=== PATIENT | female | born 1950 | race Caucasian/White ===

== ENCOUNTER → 2017-01-02 | Outpatient (CLI) | payer OTHER | LOC: FIMAGING 14:21 | DX: Z12.31 Encounter for screening mammogram for malignant neoplasm of breast (principal) | CPT/HCPCS: G0202 ==

== ENCOUNTER 2017-03-24 05:54 | Day surgery (SDC) | payer OTHER ==
--- NOTE | 2017-03-03 14:08 | GHP ---
[f rep st] PREOP HISTORY AND PHYSICAL DATE OF ADMISSION: 03/24/2017 ADMITTING DIAGNOSES: 1. Postmenopausal bleeding. 2. Thickened endometrium. HISTORY OF PRESENT ILLNESS: Patient is a 67-year-old, 1, para 1-0-0-2 with last menstrual period in 2002 who presents with a history of postmenopausal bleeding since September 2016. The patient did have a workup with a nurse practitioner in my office. She had an ultrasound that showed endometrium thickened at 1.6 cm, but endometrial biopsy was negative for hyperplasia or malignancy. The patient states her bleeding is like a period. She bleeds for few days, needs to wear a pad and then will stop. The patient has been on hormone replacement therapy for several years now. She is currently on the estradiol patch 0.0375 twice weekly, as well as Prometrium 100 mg orally at night. Patient was treated with cyclical Progesterone x 1 month. She had a followup ultrasound showing that the endometrium remains thickened at 0.9 cm. She did have bleeding up to about a week ago. Discussed with the patient proceeding to the OR for D and C not only for curative treatment but for a diagnosis to rule out hyperplasia or any uterine malignancy. Patient agrees with the plan and wants to have the surgery. Patient does present today for a preop visit. No questions or concerns. PAST OB HISTORY: She had an uncomplicated , twins. TRAFFIC REPRESENTATIVE HISTORY: Menopausal now. Last LMP 2002. The patient denies a history of abnormal Pap smears or any exposure to sexually transmitted diseases. PAST MEDICAL HISTORY: Arthritis, hyperlipidemia, hypertension, osteopenia. PAST SURGICAL HISTORY: Abdominoplasty, left breast biopsy, , colonoscopy, left foot surgery. CURRENT MEDICATIONS: Include atorvastatin, calcium magnesium supplement, estradiol patch, losartan, Prometrium, vitamin D3. ALLERGIES: Lisinopril. FAMILY HISTORY: Mother has hypertension, hyperlipidemia and osteoporosis. Father with liposarcoma. SOCIAL HISTORY: The patient lives with her who currently has dementia. She has 2 children, twin girls. She is active, she walks 2 to 3 times a week. She drinks alcohol socially 3-4 times weekly and denies any illicit drug use or tobacco use. REVIEW OF SYSTEMS: A 10-point review of systems is negative. Pertinent positives noted in the HPI. LABS: None. STUDIES: Recent ultrasound: Anterior uterus measuring 7 x 3 x 5 cm. Endometrium remains thick measuring 0.9 cm. Left ovary is normal. Right ovary is normal. The right ovarian cyst remains unchanged at 11 x 10 x 12 mm. There is no free fluid noted. PHYSICAL EXAMINATION: VITAL SIGNS: On admission vital signs are stable. The patient is afebrile. GENERAL: Well-nourished, well-developed female. Alert and oriented times x3. CARDIOVASCULAR: Regular rate and rhythm. PULM: Lungs clear to auscultation bilaterally. ABDOMEN: Soft, nontender, nondistended. PELVIC: On bimanual exam, the uterus is normal size, nontender, and mobile. No adnexal masses noted. ASSESSMENT AND PLAN: Patient is a 67-year-old, 1, para 1-0-0-2 with last menstrual period in 2002 with postmenopausal bleeding and a thickened endometrium. 1. We discussed surgery, D and C, its limitations, n.p.o. status, and postop recovery. 2. Surgical consents were obtained. We discussed risks, benefits and alternatives including but not limited to, bleeding, infection, and risk of uterine perforation. 3. The patient understands all risks and wants to proceed with surgery. 4. Antibiotics taxonomy teacher to OR. 5. SCDs for DVT prophylaxis. /[id number]/MODL MTDD
[2017-03-09 13:12] LABS: ANION GAP 9 mEq/L (8-16); CALCIUM 10.5 mg/dL (8.5-10.4); CARBON DIOXIDE 26 mEq/l (22-31); CHLORIDE 103 mEq/L (97-110); CREATININE 0.9 mg/dL (0.6-1.0); GLOMERULAR FILTRATION RATE > 60; GLUCOSE 95 mg/dL (70-100); POTASSIUM 3.9 mEq/L (3.5-5.2); SODIUM 138 mEq/L (134-144)
[2017-03-24] MEDS ORDERED: LR 1,000 ML IV SCH (06:22)
[2017-03-24] MEDS ORDERED: ceFAZolin 2 GM/DEXTROSE 100 ML IV ONE (06:22)
[2017-03-24] MEDS ORDERED: LR 1,000 ML IV ONE (06:23)
[2017-03-24 06:28] VITALS: PULSE 83
--- NOTE | 2017-03-24 07:11 | PDHPUP ---
History & Physical Update H&P update statement: This history and physical update is based on an assessment of the patient which was completed after admission or registration (within 24 hours), but prior to the surgery/procedure. H&P update: H&P reviewed & patient examined, no change in patient's condition since H&P completed
[2017-03-24] MEDS ORDERED: MIDAZOLAM 2 MG/2 ML VIAL ONE (07:23)
[2017-03-24] MEDS ORDERED: PROPOFOL 200 MG/20 ML VIAL ONE (07:29)
[2017-03-24] MEDS ORDERED: fentaNYL 100 MCG/2 ML INJ ONE (07:29)
[2017-03-24] MEDS ORDERED: SILVER NITRATE APPLICATOR 1 APPL TP ONE (07:38)
[2017-03-24] MEDS ORDERED: LIDOCAINE 2% 5 ML SDV ONE (07:40)
[2017-03-24] MEDS ORDERED: MEPERIDINE 25 MG/ML SYR IVP PRN (07:46)
[2017-03-24] MEDS ORDERED: NALOXONE HCL 0.4 MG/ML INJ IVP PRN (07:46)
[2017-03-24] MEDS ORDERED: ACETAMINOPHEN 500 MG TAB PO PRN (07:46)
[2017-03-24] MEDS ORDERED: DEXAMETHASONE 4 MG/ML VIAL IVP PRN (07:46)
[2017-03-24] MEDS ORDERED: METOCLOPRAMIDE 10 MG/2 ML VIAL IVP PRN (07:46)
[2017-03-24] MEDS ORDERED: LR 500 ML IV PRN (07:46)
[2017-03-24] MEDS ORDERED: ONDANSETRON 4 MG/2 ML VIAL IVP PRN (07:46)
[2017-03-24] MEDS ORDERED: HYDROCODONE/APAP 5/325 TAB PO PRN (07:46)
[2017-03-24] MEDS ORDERED: OXYCODONE/APAP 5/325 TAB PO PRN (07:46)
[2017-03-24] MEDS ORDERED: PROMETHAZINE HCL 25 MG/ML INJ IVP PRN (07:46)
[2017-03-24] MEDS ORDERED: ALBUTEROL 3 ML DEYVIAL IH PRN (07:46)
[2017-03-24] MEDS ORDERED: fentaNYL 100 MCG/2 ML INJ IVP PRN (07:46)
--- NOTE | 2017-03-24 07:48 | PDANEPAE ---
ANE Past Medical History - Cardiovascular History Hx Hypertension: Yes Hx Arrhythmias: No Hx Chest Pain: No Hx Coronary Artery / Peripheral Vascular Disease: No Hx CHF / Valvular Disease: No Hx Palpitations: No Cardiovascular History Comment: pcp monitors bp medications - Pulmonary History Hx COPD: No Hx Asthma/Reactive Airway Disease: No Hx Recent Upper Respiratory Infection: No Hx Oxygen in Use at Home: No Hx Sleep Apnea: No Sleep Apnea Screening Result - Last Documented: Negative - Neurologic History Hx Cerebrovascular Accident: No Hx Seizures: No Hx Dementia: No - Endocrine History Hx Diabetes: No - Renal History Hx Renal Disorders: No - Liver History Hx Hepatic Disorders: No - Neurological & Psychiatric Hx Hx Neurological and Psychiatric Disorders: No - Cancer History Hx Cancer: No - Congenital Disorder History Hx Congenital Disorders: No - GI History Hx Gastrointestinal Disorders: No - Other Health History Other Health History: wears glasses - Chronic Pain History Chronic Pain: No - Surgical History Prior Surgeries: right knee surgery x2. right total knee replacement. left foot surgery. for twins. abdominoplasty. left breast biopsy ANE Review of Systems Review of Systems: - Exercise capacity METS (RN): 4 METS ANE Patient History - Allergies Allergies/Adverse Reactions: lisinopril Allergy (Verified 03/07/17 11:38) Other-Enter Comments - Home Medications Home Medications: Atorvastatin Calcium 03/07/17 [Last Taken Unknown] Estradiol Transdermal Patch 03/07/17 [Last Taken Unknown] Herbals/Supplements -Info Only 03/07/17 [Last Taken Unknown] Losartan-Hctz 50-12.5 mg Tab 03/07/17 [Last Taken Unknown] Progesterone 03/07/17 [Last Taken Unknown] - NPO status NPO Since - Liquids (Date): 03/23/17 NPO Since - Liquids (Time): 19:00 NPO Since - Solids (Date): 03/23/17 NPO Since - Solids (Time): 19:00 - Smoking Hx Smoking Status: Never smoked - Family Anes Hx Family Hx Anesthesia Complications: none ANE Labs/Vital Signs - Labs Result Diagrams: 03/09/17 12:30 - Vital Signs Blood Pressure: 159/87 Heart Rate: 83 Respiratory Rate: 14 O2 Sat (%): 96 Height: 167.64 cm Weight: 71.668 kg ANE Physical Exam - Airway Mallampati Score: Class 2 Mouth exam: normal dental/mouth exam - Pulmonary Pulmonary: no respiratory distress, no rales or rhonchi, clear to auscultation - Cardiovascular Cardiovascular: regular rate and rhythym, no murmur, rub, or gallop - ASA Status ASA Status: II ANE Anesthesia Plan Anesthesia Plan: GA with mask
[2017-03-24] MEDS ORDERED: KETOROLAC 30 MG/1 ML SDV ONE (07:49)
[2017-03-24] MEDS ORDERED: ONDANSETRON 4 MG/2 ML VIAL ONE (07:49)
[2017-03-24] MEDS ORDERED: MIDAZOLAM 2 MG/2 ML VIAL IVP ONE (08:00)
--- NOTE | 2017-03-24 08:00 | POSTOPPROG ---
Post Op Note Date of Operation: 03/24/17 Surgeon: Jenn Ward Lumber Scaler: None Anesthesiologist: Ele Bar Anesthesia: IV Sedation, LMA Pre-op Diagnosis: PMB Post-op Diagnosis: PMB Indication: 67 y/o with several months of PMB, thickened endo on u/s at 9mm Procedure: D&C Findings: Atrophic vagina; no lesions on cervix; minimal endometrial tissue noted Inf/Abcess present in the surg proc area at time of surgery?: No Depth: Superfical (Skin SQ) EBL: Minimal (5cc) Total fluids administered: 200 cc LR Complications: None Specimen(s): Endometrial curettings
[2017-03-24 08:29] VITALS: RESP 14
--- NOTE | 2017-03-24 08:36 | POSTANESTH ---
Post Anesthetic Evaluation Cardiovascular Status: Normal, Stable Respiratory Status: Normal, Stable Level of Consciousness/Mental Status: Can Participate in Eval Pain Control: Adequate, Prn Tx Ordered Nausea/Vomiting Control: Adequate, Prn Tx Ordered Complications Possibly Related to Anesthesia: None Noted
--- NOTE | 2017-03-24 09:24 | GOP ---
[f rep st] OPERATIVE REPORT DATE OF OPERATION: 03/24/2017 SURGEON: Jenn Ward DO CONTROL CLERK HEAD: None. ANESTHESIA: LMA. ANESTHESIOLOGIST: Petra White MD PREOPERATIVE DIAGNOSIS: Postmenopausal bleeding. POSTOPERATIVE DIAGNOSIS: Postmenopausal bleeding. PROCEDURE PERFORMED: Dilation and curettage. FINDINGS: Atrophic vagina. Cervix without lesions. Minimal endometrial curettings obtained. SPECIMENS: Endometrial curettings. ESTIMATED BLOOD LOSS: Less than 5 cc. INDICATIONS: Patient is a 67-year-old postmenopausal 1, para 1-0-0-2, who presents with several months of postmenopausal bleeding. Patient did have a workup in my office by my nurse practitioner and had a negative endometrial biopsy. Was started on cyclic progesterone but continued to have postmenopausal bleeding, and followup ultrasound still showed a thickened lining at 9 mm. Patient has been stable on hormone replacement therapy for years. We discussed proceeding to the operating room for both therapeutic and diagnostic treatment for postmenopausal bleeding. We discussed risks including bleeding and infection, and risk of uterine perforation. Patient understands all risks of the surgery and wants to proceed with the surgery at this time. DESCRIPTION OF PROCEDURE: Patient was taken to the operating room where anesthesia was obtained without difficulty. The patient was placed in dorsal lithotomy position and prepped and draped in sterile manner. A speculum was placed in the patient's vagina. Findings as noted above. The anterior lip of the cervix was grasped with a single-tooth tenaculum. The uterus was then sounded to 7-8 cm and was dilated up to a #8 Hegar to allow a large sharp curette to be advanced into the uterus. A large sharp curette was then used to obtain a minimal amount of tissue. This was done in all 4 quadrants of the uterus. The specimen was sent to pathologist for analysis. All instruments were removed from the vagina. There was noted to be some bleeding from the tenaculum site on the cervix. Silver nitrate x1 was used, and hemostasis was noted. There were no complications. Patient tolerated the procedure well. The patient was taken out of dorsal lithotomy position, awakened, and sent to recovery area in satisfactory condition. IV FLUIDS: 200 cc LR. URINE OUTPUT: Patient emptied her bladder prior to the procedure. /[id number]/MODL MTDD
[2017-03-24 09:57] VITALS: BP 134/67; O2SAT 97
[2017-03-24 09:58] VITALS: TEMP 97.7
== END 2017-03-24 09:20 | disposition home or self-care (01) ==
LOC: FOBOP 05:54
PROVIDERS: ATTEND Obstetrics & Gynecology
PROC: 0UDB7ZX Extraction of Endometrium, Via Natural or Artificial Opening, Diagnostic (ICD-10-PCS; principal; 2017-03-24 07:30)
DX: N95.0 Postmenopausal bleeding (principal); R93.8 Abnormal findings on diagnostic imaging of other specified body structures; E78.5 Hyperlipidemia, unspecified; I10 Essential (primary) hypertension; N84.1 Polyp of cervix uteri; N72 Inflammatory disease of cervix uteri
CPT/HCPCS: J0690; J1885; J2250; J2405; J2704; J3010

== ENCOUNTER → 2018-01-03 | Outpatient (CLI) | payer OTHER | LOC: FIMAGING 15:52 | PROVIDERS: ATTEND Nurse Practitioner Women's Health | DX: Z12.31 Encounter for screening mammogram for malignant neoplasm of breast (principal) ==

== ENCOUNTER → 2018-09-10 | Outpatient (CLI) | payer OTHER | LOC: FIMAGING 13:31 | PROVIDERS: ATTEND Orthopaedic Surgery | DX: M17.12 Unilateral primary osteoarthritis, left knee (principal) ==

== ENCOUNTER 2018-11-12 09:33 | Observation (INO) | payer OTHER ==
--- NOTE | 2018-11-12 06:15 | PDHPUP ---
History & Physical Update H&P update statement: This history and physical update is based on an assessment of the patient which was completed after admission or registration (within 24 hours), but prior to the surgery/procedure. H&P update: no change in patient's condition since H&P completed
--- NOTE | 2018-11-12 06:16 | PDIAF ---
- Diagnosis Diagnosis: left knee djd Code Status: Full Code - Medication Management Discharge Medications: electronically signed and located in the Home Medication List. - Orders Services needed: Home Care, Physical Therapy Home Care Face to Face: I certify that this patient was under my care and that I had the required [id number] encounter meeting the encounter requirements on the discharge day. My findings support the fact that the patient is homebound as defined in Home Care Face to Face Continued: CMS Chapter 7 Medicare Benefits Manual 30.1.1 , The condition of the patient is such that there exists a normal inability to leave home and consequently, leaving home would require a considerable and taxing effort. Diet Recommendation: no restrictions on diet Diet Texture: Regular Texture Diet Additional Instructions: TOTAL JOINT ARTHROPLASTY DISCHARGE INSTRUCTIONS 1. Your surgeon follows the [facility] protocol for reducing your risk of DVT (blood clots) following surgery. Medication will be ordered to prevent blood clots. A sudden increase in calf pain and/or swelling could indicate a blood clot in your leg. If this occurs, please call your surgeon or his/her dental assistant instructor. An ultrasound of the leg may be necessary to diagnose a blood clot. If you have conditions that make you a higher risk for blood clots, your surgeon may use more aggressive ways to prevent them. Notify your surgeon if you think you are a high risk for blood clots. 2. Wear your white surgical stockings (GISSELL hose) for 2 weeks. This decreases your swelling and may help prevent blood clots. It is ok to remove GISSELL hose at night time to give your legs a break. 3. Swelling and bruising in the surgical leg is common. If you feel that it is excessive, please notify your surgeon. 4. Elevate your surgical leg with the ankle above the hip several times every day. Please keep the leg straight when you elevate by putting pillows under your foot. Do not put pillows under your knee. This will make being able to fully straighten more difficult. This is uncomfortable, but try to do it as much as possible. 5. For total knee replacements use compressive wrap on your knee for 3-5 days after surgery, then you can discontinue it. 6. Use a walker or crutches for 1-2 weeks. Progress your weight-bearing as tolerated. You may start to use a cane when you feel stable and safe. 7. You will receive physical therapy instructions in the hospital. Continue those exercises at home. There are additional exercises in the total joint booklet you were given before surgery. Outpatient physical therapy will begin 7- 10 days after surgery. Please schedule this in advance. 8. Use ice on your knee at least 3-5 times every day for 30 minutes. This helps reduce pain and swelling. Also use it at night before falling asleep. 9. Leave your surgical dressing in place for 2 weeks. Your dressing is water resistant, but not waterproof. Cover it with Saran Wrap or Ssuei-i-Bwnk before showering. You may shower as soon as you feel safe entering a shower. If you notice bleeding from your incision 2 or 3 days after surgery, please notify your surgeon. 10. Due to narcotics, decreased activity and altered diet, most patients experience constipation after surgery. Use [id number] stool softeners while you are on narcotics. 11. You may drive a car when you are comfortable bearing weight, have good muscular control of your leg and are off narcotics. This usually occurs 2-4 weeks after surgery, depending on which leg was operated on. 12. If there are questions not addressed here, please refer the [facility] book given for more information. If you still have questions, please contact your surgeon s office. 13. If you have a life-threatening emergency, please call 911 and go to the emergency room immediately. For non-life threatening emergencies, please call your physicians office for advice before going to the emergency room. - Follow Up Care Current Providers and Referrals: Maricruz Medel MD [Primary Care Provider] - Kunal Dior MD [Medical Doctor] -
[~2018-11-12 09:33] MED LIST: CALCIUM CHLORIDE 1 GM/10 ML INJ ONE; ROPIVACAINE 0.2% 80 MG, EPINEPHrine 0.2 MG, KETOROLAC TROMETHAMINE 30 MG, morphINE 10 M... IU ONE; THROMBIN (BOVINE) 5,000 UNIT VIAL TP ONE; TRANEXAMIC ACID 1,000 MG in NS 100 ML IV ONE; ceFAZolin 1 GM/5 ML SYR ONE
[2018-11-12] MEDS ORDERED: ACETAMINOPHEN 325 MG TAB PO ONE (10:05)
[2018-11-12] MEDS ORDERED: FAMOTIDINE 20 MG TAB PO ONE (10:05)
[2018-11-12] MEDS ORDERED: ceFAZolin 2 GM/DEXTROSE 100 ML IV ONE (10:05)
[2018-11-12] MEDS ORDERED: LIDOCAINE 1% 2 ML INJ ID PRN (10:05)
[2018-11-12] MEDS ORDERED: LR 1,000 ML IV ONE (10:05)
[2018-11-12] MEDS ORDERED: MIDAZOLAM 2 MG/2 ML VIAL IVP ONE (11:32)
--- NOTE | 2018-11-12 11:32 | PDANEPAE ---
ANE History of Present Illness Left knee OA ANE Past Medical History - Cardiovascular History Hx Hypertension: Yes Hx Arrhythmias: No Hx Chest Pain: No Hx Coronary Artery / Peripheral Vascular Disease: No Hx CHF / Valvular Disease: No Hx Palpitations: No Cardiovascular History Comment: pcp monitors bp medications - Pulmonary History Hx COPD: No Hx Asthma/Reactive Airway Disease: No Hx Recent Upper Respiratory Infection: No Hx Oxygen in Use at Home: No Hx Sleep Apnea: No Sleep Apnea Screening Result - Last Documented: Negative - Neurologic History Hx Cerebrovascular Accident: No Hx Seizures: No Hx Dementia: No - Endocrine History Hx Diabetes: No - Renal History Hx Renal Disorders: No - Liver History Hx Hepatic Disorders: No - Neurological & Psychiatric Hx Hx Neurological and Psychiatric Disorders: No - Cancer History Hx Cancer: No - Congenital Disorder History Hx Congenital Disorders: No - GI History Hx Gastrointestinal Disorders: Yes Gastrointestinal History Comment: diverticulosis - Other Health History Other Health History: wears glasses - Chronic Pain History Chronic Pain: Yes (hands) - Surgical History Prior Surgeries: right knee surgery x2. right total knee replacement. left foot surgery. for twins. abdominoplasty. left breast biopsy ANE Review of Systems Review of Systems: - Exercise capacity METS (RN): 4 METS ANE Patient History - Allergies Allergies/Adverse Reactions: lisinopril Allergy (Verified 11/12/18 10:41) Other-Enter Comments - Home Medications Home medications: home medication list seen and reviewed Home Medications: Atorvastatin Calcium 03/07/17 [Last Taken Unknown] Estradiol Transdermal Patch 03/07/17 [Last Taken 11/05/18] Herbals/Supplements -Info Only 03/07/17 [Last Taken 11/05/18] Losartan-Hctz 50-12.5 mg Tab 03/07/17 [Last Taken 11/11/18] Progesterone 03/07/17 [Last Taken 11/05/18] Celebrex 10/30/18 [Last Taken 11/05/18] Cholecalciferol (Vitamin D3) 10/30/18 [Last Taken 11/05/18] Folic Acid 10/30/18 [Last Taken 11/05/18] Methotrexate 10/30/18 [Last Taken Unknown] - NPO status NPO Since - Liquids (Date): 11/12/18 NPO Since - Liquids (Time): 05:00 NPO Since - Solids (Date): 05/19/19 NPO Since - Solids (Time): 19:00 - Anes Hx Anes Hx: no prior problems (Prior spinal without diff) - Smoking Hx Smoking Status: Never smoked - Family Anes Hx Family Hx Anesthesia Complications: none ANE Labs/Vital Signs - Vital Signs Blood Pressure: 171/91 Heart Rate: 95 Respiratory Rate: 20 O2 Sat (%): 98 Height: 167.64 cm Weight: 72.121 kg ANE Physical Exam - Airway Neck exam: FROM Mallampati Score: Class 2 Mouth exam: normal dental/mouth exam - Pulmonary Pulmonary: no respiratory distress - Cardiovascular Cardiovascular: regular rate and rhythym - ASA Status ASA Status: II ANE Anesthesia Plan Anesthesia Plan: MAC, spinal Regional Anesthesia: adductor canal FNB
[2018-11-12] MEDS ORDERED: ceFAZolin 1 GM/5 ML SYR ONE (11:49)
[2018-11-12] MEDS ORDERED: PROPOFOL/EMULSION 500 MG/50 ML BOTTLE IV ONE ×2 (11:58→13:12)
[2018-11-12] MEDS ORDERED: PROPOFOL 200 MG/20 ML VIAL ONE (11:58)
[2018-11-12] MEDS ORDERED: LIDOCAINE 2% 2 ML INJ ONE (12:02)
[2018-11-12] MEDS ORDERED: PROMETHAZINE HCL 25 MG/ML INJ IVP PRN ×2 (12:37→13:33)
[2018-11-12] MEDS ORDERED: NALOXONE HCL 0.4 MG/ML INJ IVP PRN (12:37)
[2018-11-12] MEDS ORDERED: HYDROmorphONE/DILAUDID 1 MG/ML INJ IVP PRN (12:37)
[2018-11-12] MEDS ORDERED: ONDANSETRON 4 MG/2 ML VIAL IVP PRN ×2 (12:37→13:33)
[2018-11-12] MEDS ORDERED: ROPIVACAINE HCL 150 MG/30 ML INJ ONE (13:31)
[2018-11-12] MEDS ORDERED: CYCLOBENZAPRINE 10 MG TAB PO PRN (13:33)
[2018-11-12] MEDS ORDERED: POLYETHYLENE GLYCOL 3350 17 GM PKT PO PRN (13:33)
[2018-11-12] MEDS ORDERED: PROMETHAZINE HCL 25 MG SUPPR PR PRN (13:33)
[2018-11-12] MEDS ORDERED: LACTULOSE 20 GM/30 ML UDCUP PO PRN (13:33)
[2018-11-12] MEDS ORDERED: DIPHENOXYLATE/ATROPINE LOMOTIL 1 TAB PO PRN (13:33)
[2018-11-12] MEDS ORDERED: diphenhydrAMINE 25 MG CAP PO PRN (13:33)
[2018-11-12] MEDS ORDERED: TEMAZEPAM 15 MG CAP PO PRN (13:33)
[2018-11-12] MEDS ORDERED: ONDANSETRON DISINTEGRATING 4 MG TAB PO PRN (13:33)
[2018-11-12] MEDS ORDERED: BISACODYL 10 MG SUPP PR PRN (13:33)
[2018-11-12] MEDS ORDERED: MAGNESIUM HYDROXIDE 30 ML UDCUP PO PRN (13:33)
[2018-11-12] MEDS ORDERED: METOCLOPRAMIDE 10 MG/2 ML VIAL IVP PRN (13:33)
--- NOTE | 2018-11-12 13:33 | POSTOPPROG ---
Post Op Note Date of Operation: 11/12/18 Surgeon: Kunal Dior Pipe Fitter Soft Copper: Sandra Anesthesiologist: Chucho Anesthesia: Spinal Pre-op Diagnosis: Left knee OA Post-op Diagnosis: Left knee OA Indication: Left knee OA Procedure: Left total knee arthroplasty, MAKOplasty robotic assist Findings: Left knee OA Inf/Abcess present in the surg proc area at time of surgery?: No Depth: Deep Incisional (Fascial) EBL: 100-500
[2018-11-12] MEDS ORDERED: LR 1,000 ML IV SCH (14:00)
[2018-11-12] MEDS ORDERED: fentaNYL 100 MCG/2 ML INJ ONE ×2 (14:01→14:18)
[2018-11-12] MEDS: fentaNYL 100 MCG/2 ML INJ IVP PRN ×4 (14:03→14:45)
--- NOTE | 2018-11-12 14:12 | POSTANESTH ---
Post Anesthetic Evaluation Cardiovascular Status: Similar to Pre-Op Cond Respiratory Status: Similar to Pre-op Cond. Level of Consciousness/Mental Status: Alert and Oriented Pain Control: Inadeq, Add Tx Required Nausea/Vomiting Control: Inadeq, Add Tx Reqired Complications Possibly Related to Anesthesia: None Noted (Adductor cannal block done in PACU. Well tolerated and no complications noted.)
[2018-11-12] MEDS ORDERED: HYDROmorphONE/DILAUDID 1 MG/ML INJ ONE (14:43)
[2018-11-12] MEDS: TRANEXAMIC ACID 650 MG TAB PO SCH ×2 (15:43→21:04)
--- NOTE | 2018-11-12 15:52 | SOAPPROG ---
SOAP Progress Note Assessment/Plan: Assessment: s/p left TKA, ANNALISE assist - procedure earlier today Plan: Begin d/c planning - likely discharge home tomorrow - has support from her daughter for a couple weeks (her daughter lives in [place]). Will need clearance from PT prior to d/c WBAT ROM as tolerated Home PT with transportation planner DVT precautions reviewed - aspirin 81 mg BID F/U at two weeks Seek attention for increasing pain, swelling or other focal complaint Subjective: Patient states she is doing good, pain is more of a dull throb. She is hoping to go home tomorrow. She has PT scheduled for this Monday. Her daughter, who lives in [place], will be staying with her for a couple weeks. She denies SOB, CP, fever, chills. Objective: Vital Signs Temp Pulse Resp BP Pulse Ox 36.4 C 75 17 149/87 H 97 11/12/18 15:00 11/12/18 15:00 11/12/18 15:00 11/12/18 15:00 11/12/18 15:00 11/11/18 11/12/18 11/13/18 05:59 05:59 05:59 Intake Total 600 Output Total 50 Balance 550 Patient resting in bed, no acute distress. Her daughter is present in the room. LLE: Surgical wound dressings are clean, dry and intact. Calf is soft and nontender. Negative Homans sign bilaterally. She can actively DF and PF her left foot and great toe against resistance. Grossly NVI distally. ICD10 Worksheet Patient Problems: Problems Problem Status Onset Unilateral primary osteoarthritis, left knee Acute Postmenopausal bleeding Acute
[2018-11-12] MEDS: oxyCODONE IR 5 MG TAB PO PRN ×2 (17:15→21:05)
[2018-11-12] MEDS: SENNOSIDES/DOCUSATE SODIUM TAB PO SCH (20:03)
[2018-11-12] MEDS: ASPIRIN 81 MG CHEWABLE TAB PO SCH (20:03)
[2018-11-12] MEDS: FAMOTIDINE 20 MG TAB PO SCH (20:04)
[2018-11-12] MEDS: ACETAMINOPHEN 325 MG TAB PO SCH (20:04)
[2018-11-12] MEDS: ceFAZolin 2 GM/DEXTROSE 100 ML IV SCH (20:06)
[2018-11-12] MEDS ORDERED: ATORVASTATIN CALCIUM 10 MG TAB PO SCH (21:00)
[2018-11-13] MEDS: ACETAMINOPHEN 325 MG TAB PO SCH ×2 (01:03→07:57)
[2018-11-13] MEDS: ceFAZolin 2 GM/DEXTROSE 100 ML IV SCH (03:43)
[2018-11-13] MEDS: TRANEXAMIC ACID 650 MG TAB PO SCH (05:23)
[2018-11-13 07:21] VITALS: BP 129/76
--- NOTE | 2018-11-13 07:24 | SOAPPROG ---
SOAP Progress Note Assessment/Plan: Assessment: s/p left TKA, ANNALISE assist - POD 1 Anemia - expected initially post-op, asymptomatic, continue to monitor Plan: Continue d/c planning - patient doing better than expected, she will likely discharge home today - has support from her daughter for a couple weeks (her daughter lives in [place]). Will need clearance from PT prior to d/c WBAT ROM as tolerated Home PT with tool and production planner DVT precautions reviewed - aspirin 81 mg BID F/U at two weeks with Dr. Dior Seek attention for increasing pain, swelling or other focal complaint Subjective: Patient states her left knee pain is mild and tolerable. She feels well enough to go home today. She denies SOB, CP, fever, chills, nausea, numbness, tingling. Objective: Vital Signs Temp Pulse Resp BP Pulse Ox 37.0 C 75 17 129/76 H 94 11/13/18 07:20 11/13/18 07:20 11/13/18 07:20 11/13/18 07:20 11/13/18 07:20 Laboratory Results 11/13/18 04:42 11/12/18 11/13/18 11/14/18 05:59 05:59 05:59 Intake Total 1580 Output Total 975 Balance 605 Patient sitting in her chair eating breakfast, no acute distress. Left knee wound dressings are clean, dry and intact. Mild diffuse edema. No erythema, purulent drainage or signs of infection. Lower leg compartments are soft and nontender. Negative Yissel's sign bilaterally. PF, DF, EHL motor function intact. Toes are warm and pink. Capillary refill < 2-3 seconds in all toes. Intact to light touch distally. ICD10 Worksheet Patient Problems: Problems Problem Status Onset Unilateral primary osteoarthritis, left knee Acute Postmenopausal bleeding Acute
[2018-11-13] MEDS: FAMOTIDINE 20 MG TAB PO SCH (07:56)
[2018-11-13] MEDS: ASPIRIN 81 MG CHEWABLE TAB PO SCH (07:57)
[2018-11-13] MEDS: SENNOSIDES/DOCUSATE SODIUM TAB PO SCH (07:57)
[2018-11-13] MEDS: oxyCODONE IR 5 MG TAB PO PRN ×2 (07:58→09:23)
--- NOTE | 2018-11-13 08:02 | PDIAF ---
- Diagnosis Diagnosis: left knee djd Code Status: Full Code - Medication Management Discharge Medications: electronically signed and located in the Home Medication List. - Orders Services needed: Home Care, Physical Therapy Home Care Face to Face: I certify that this patient was under my care and that I had the required [id number] encounter meeting the encounter requirements on the discharge day. My findings support the fact that the patient is homebound as defined in Home Care Face to Face Continued: CMS Chapter 7 Medicare Benefits Manual 30.1.1 , The condition of the patient is such that there exists a normal inability to leave home and consequently, leaving home would require a considerable and taxing effort. Diet Recommendation: no restrictions on diet Diet Texture: Regular Texture Diet Additional Instructions: TOTAL JOINT ARTHROPLASTY DISCHARGE INSTRUCTIONS 1. Your surgeon follows the [facility] protocol for reducing your risk of DVT (blood clots) following surgery. Medication will be ordered to prevent blood clots. A sudden increase in calf pain and/or swelling could indicate a blood clot in your leg. If this occurs, please call your surgeon or his/her anesthetic assistant. An ultrasound of the leg may be necessary to diagnose a blood clot. If you have conditions that make you a higher risk for blood clots, your surgeon may use more aggressive ways to prevent them. Notify your surgeon if you think you are a high risk for blood clots. 2. Wear your white surgical stockings (GISSELL hose) for 2 weeks. This decreases your swelling and may help prevent blood clots. It is ok to remove GISSELL hose at night time to give your legs a break. 3. Swelling and bruising in the surgical leg is common. If you feel that it is excessive, please notify your surgeon. 4. Elevate your surgical leg with the ankle above the hip several times every day. Please keep the leg straight when you elevate by putting pillows under your foot. Do not put pillows under your knee. This will make being able to fully straighten more difficult. This is uncomfortable, but try to do it as much as possible. 5. For total knee replacements use compressive wrap on your knee for 3-5 days after surgery, then you can discontinue it. 6. Use a walker or crutches for 1-2 weeks. Progress your weight-bearing as tolerated. You may start to use a cane when you feel stable and safe. 7. You will receive physical therapy instructions in the hospital. Continue those exercises at home. There are additional exercises in the total joint booklet you were given before surgery. Outpatient physical therapy will begin 7- 10 days after surgery. Please schedule this in advance. 8. Use ice on your knee at least 3-5 times every day for 30 minutes. This helps reduce pain and swelling. Also use it at night before falling asleep. 9. Leave your surgical dressing in place for 2 weeks. Your dressing is water resistant, but not waterproof. Cover it with Saran Wrap or Zqjwn-p-Ebbw before showering. You may shower as soon as you feel safe entering a shower. If you notice bleeding from your incision 2 or 3 days after surgery, please notify your surgeon. 10. Due to narcotics, decreased activity and altered diet, most patients experience constipation after surgery. Use mwtk-ztj-adomlaa stool softeners while you are on narcotics. 11. You may drive a car when you are comfortable bearing weight, have good muscular control of your leg and are off narcotics. This usually occurs 2-4 weeks after surgery, depending on which leg was operated on. 12. If there are questions not addressed here, please refer the [facility] book given for more information. If you still have questions, please contact your surgeon s office. 13. If you have a life-threatening emergency, please call 911 and go to the emergency room immediately. For non-life threatening emergencies, please call your physicians office for advice before going to the emergency room. - Follow Up Care Current Providers and Referrals: Maricruz Medel MD [Primary Care Provider] - Kunal Dior MD [Medical Doctor] - follow up in 2 weeks
--- NOTE | 2018-11-13 08:05 | PDDCSUM ---
Discharge Summary Discharge Summary: ADMIT DIAGNOSIS: Left knee degenerative joint disease DISCHARGE DIAGNOSIS: Left knee degenerative joint disease NAME OF PROCEDURE: Left total knee arthroplasty, MAKOplasty robotic assist HPI: The patient is a 68 year old female who has end-stage arthritis of her left knee. Clinical and radiographic features are consistent with this. Patient has failed attempts at conservative management, therefore, recommended operative left total knee replacement. HOSPITAL COURSE: Patient was admitted to the hospital floor after uncomplicated left total knee arthroplasty, MAKOplasty robotic assist. Patient tolerated the procedure well and had no additional complications. She was started on aspirin 81 mg BID, SCDs, GISSELL hose for VTE prophylaxis. She also participated with PT and OT. On the morning of POD 1, patient is doing better than expected. At the time of discharge, patient is tolerating an oral diet, pain is well controlled on oral medications, and is voiding without difficulty. Dressing is clean, dry and intact. There is no swelling or calf tenderness. Patient has intact plantarflexion, dorsiflexion, EHL function. X-rays demonstrate anatomic positioning with no fracture or lucency. DISCHARGE ACTIVITY: Patient is WBAT and can perform ROM as tolerated. Patient was instructed to keep dressing clean, dry and intact. Patient is to seek attention for increasing redness, swelling, drainage or discharge. DISCHARGE MEDICATIONS: oxycodone 5 mg 1-2 every 3 hours prn pain, cyclobenzaprine 10 mg PO every 8 hours prn spasm, Zofran 4 mg orally disintegrating tablet every 8 hours prn nausea, aspirin 81 mg PO twice daily. FOLLOW-UP: Follow up in 2 weeks. Again, patient is to seek attention for increasing redness, swelling, drainage or discharge.
[2018-11-13] MEDS ORDERED: HYDROCHLOROTHIAZIDE 25 MG TAB PO SCH (09:00)
[2018-11-13] MEDS ORDERED: FOLIC ACID 1 MG TAB PO SCH (09:00)
[2018-11-13] MEDS ORDERED: PROGESTERONE,MICR 100 MG CAP PO SCH (09:00)
[2018-11-13] MEDS ORDERED: CHOLECALCIFEROL VIT D3 1,000 UNITS TAB PO SCH (09:00)
--- NOTE | 2018-11-13 09:42 | ASMTLACE ---
LACE Length of stay for Answers: 1 day current admission Acuity / Level of Answers: Yes Care: Did the patient have an inpatient admission? Comorbidities - select Answers: Opioid dependence all that apply / Chronic pain Other Notes: HTN # of Emergency department Answers: 0 visits in the last 6 months Score: 9 Date Signed: 11/13/2018 09:41 AM Electronically Signed By:STEVEN Garcia
--- NOTE | 2018-11-13 09:44 | ASMTCMCOM ---
CM Note CM Note Notes: Pt had planned OA of knee, resides with spouse. PT rec home/outpatient. Pt declines home PT, reports she has an outpatient PT she will schedule when MD approves. No CM d/c needs identified. Date Signed: 11/13/2018 09:43 AM Electronically Signed By:STEVEN Garcia
--- NOTE | 2018-11-15 07:08 | GOP ---
[f rep st] OPERATIVE REPORT DATE OF OPERATION: 11/12/2018 SURGEON: Kunal Dior MD [employer]: Higinio Flores, BUSINESS DEVELOPMENT SPECIALIST, [facility]. assistant professor of communication was medically necessity for the entirety of the case. PREOPERATIVE DIAGNOSIS: Left knee degenerative joint disease. POSTOPERATIVE DIAGNOSIS: Left knee degenerative joint disease. PROCEDURE PERFORMED: Left total knee arthroplasty. FINDINGS: SPECIMENS: To pathology none. INDICATIONS: Annabelle is a 68-year-old woman with end-stage arthritis of her left knee. Clinical and radiographic features are consistent with this. She has failed attempts at all conservative measures . I have recommended operative intervention. I have outlined the surgical procedure, risks, benefit s, and alternatives. She wished to proceed. Written consent was signed and placed in the patient's chart. DESCRIPTION OF PROCEDURE: The patient was identified in the preanesthesia area. The left knee clear ly demarcated as the operative site with indelible marker. She was given 2 g of Ancef intravenously en route to the operative suite. In the OR, spinal anesthetic was placed. She was positioned in the supine position. Appropriate time-out procedure was carried out. The limb was then sterilely prepp ed and draped in the usual fashion. Tourniquet was applied to the upper thigh. The limb was exsangu inated with an Esmarch bandage. Tourniquet inflated to 275 mmHg. Standard anterior midline incision was made. Thick subcutaneous flaps were elevated followed by medial parapatellar arthrotomy. Subpe riosteal elevation was carried out to the mid coronal plane, and the knee was brought to a flexed pos ition. There was tricompartmental arthritis. Decision was made to proceed with total knee replaceme nt. Two pins were then placed from medial to lateral across the distal femur and [address] aced across the distal tibia. The femoral and tibial reference arrays were then affixed, femoral and tibial checkpoints were then placed. The bony landmarks were entered into the computer in standard fashion. The knee was balanced through the flexion-extension arc with soft tissue release over the m edial aspect and adjustment of the components. Using the MAKOplasty software, resections were made f or a size 3 femur, size 3 tibia, trial reduction was carried out and ultimately a 3 x 16 mm polyethyl fozia spacer was selected to balance the knee through the flexion-extension arc to varus and valgus str ess. This allowed full extension without hyperextension and flexion to 120 degrees. Trial components were withdrawn. The size 3 tibia impacted, size 3 femur impacted. Additional trial ing carried out and a 3 x 16 mm polyethylene spacer was placed, impacted, confirmed to be fully seate d. This allowed full extension and flexion to 125 degrees without instability through the flexion an d extension arc. Attention was then turned to the patella. This was everted and cut in a freehand cutting technique. Drill holes were made for a size 32 mm patella and a press-fit patella was then positioned. This wa s tracked centrally through the trochlear groove through the flexion-extension arc. The wound was co piously irrigated. The tissue was injected with a joint cocktail of ropivacaine, Toradol, and epinep hrine. The medial parapatellar arthrotomy closed using #1 Ethibond suture, the subcutaneous tissue u sing 2-0 Monocryl, and the skin was stapled. Sterile dressing was applied. The patient was awakened , extubated, and taken to the recovery room in good, stable condition. TOTAL TOURNIQUET TIME: 48 minutes. COMPLICATIONS: None. IMPLANTS: The Segun Triathlon posterior stabilized femoral component size 3, size 3 tibia, size 3 x 16 mm polyethylene spacer, and 32 mm patella. DISPOSITION: To the recovery room, then the floor. She will be weightbearing as tolerated. Follow standard total knee replacement. /[id number]/MODL
[2018-11-15] MEDS ORDERED: ESTRADIOL VIVELLE 0.0375 MG PATCH TD SCH (08:00)
== END 2018-11-13 09:37 | disposition home health service (06) ==
LOC: INTOOBSV 09:33 → F3N 09:33
PROVIDERS: ADMIT Orthopaedic Surgery; ATTEND Orthopaedic Surgery
DX: M17.12 Unilateral primary osteoarthritis, left knee (principal); I10 Essential (primary) hypertension; Z96.651 Presence of right artificial knee joint
CPT/HCPCS: 27447; 73560; 88311; 97110; 97116; 97161; 97165; C1776; J0171; J0690; J1170; J1885; J2250; J2270; J2704; J2795; J3010